=== PATIENT | male | born 1960 | race Caucasian/White ===

== ENCOUNTER 2018-07-24 05:34 | Day surgery (SDC) | payer OTHER ==
[2018-07-24] MEDS ORDERED: LIDOCAINE 2% MDV (20MG/ML) 20ML VIAL IV ONE (05:35)
[2018-07-24] MEDS ORDERED: MIDAZOLAM HCL 2MG/2ML VIAL IV ONE (05:35)
[2018-07-24] MEDS ORDERED: ACETAMINOPHEN W/ CODEINE 300MG/30MG TABLET PO ONE (05:35)
[2018-07-24] MEDS ORDERED: ONDANSETRON HCL IV 4 MG/2 ML VIAL IVP ONE (05:35)
[2018-07-24] MEDS ORDERED: PROPOFOL 10 MG/ML VIAL IV ONE (05:35)
[2018-07-24] MEDS ORDERED: DEXAMETHASONE 4 MG/ML 1ML VIAL IVP ONE (05:35)
[2018-07-24] MEDS ORDERED: FENTANYL PF 100MCG/2ML VIAL IV ONE (05:35)
[2018-07-24] MEDS ORDERED: SEVOFLURANE 250 ML INH ONE (05:35)
[2018-07-24] MEDS ORDERED: SCOPOLAMINE 1 PATCH TDSY TD ONE (06:00)
[2018-07-24] MEDS ORDERED: METOCLOPRAMIDE 10 MG TABLET PO ONE (06:00)
[2018-07-24] MEDS ORDERED: ACETAMINOPHEN 1,000 MG/100 ML BTL IV ONE (06:00)
[2018-07-24] MEDS ORDERED: FAMOTIDINE 20MG TABLET PO ONE (06:00)
--- NOTE | 2018-07-25 10:30 | Operative Note ---
DATE OF SURGERY: 07/24/2018 Surgeon: Jos Peacock DO PREOPERATIVE DIAGNOSIS: Ganglion first dorsal compartment of the right wrist. POSTOPERATIVE DIAGNOSIS: Soft tissue mass first dorsal compartment of right wrist (1 cm). OPERATION: Excision of soft tissue mass first dorsal compartment of right wrist using 3.5 loop magnification. DESCRIPTION OF PROCEDURE: This 58-year-old male was taken to the operating room and placed in the supine position on the operating room table. General anesthetic was administered. The right upper extremity was elevated and prepped with Hibiclens and draped in the usual sterile fashion. After exsanguination, an incision was made transversely 1 cm proximal to the tip of the radial styloid. Dissection was carried down through the skin and subcutaneous tissue. Superficial branches of the radial nerve were identified and protected. The first dorsal compartment was easily identified and what appeared to be a mass at the distal margin of the first dorsal compartment was identified. An incision was made longitudinally in line with the extensor tendons and the mass was identified. I did not see any evidence of a ganglion. There was no fluid. This appeared to be a solid type mass red in color and it was excised in an elliptical type fashion protecting the extensor tendons to the thumb. This was excised and sent to the laboratory for analysis. We did incise the remainder of the first dorsal compartment to evaluate all of the extensor tendons and they all appeared to be normal. The wound was irrigated with lactated Ringer's solution. Hemostasis obtained with the electrocautery and the wound was closed with 4-0 Vicryl suture and the skin with 4-0 nylon interlocking suture. Sterile dressings applied and the patient taken to the recovery room in satisfactory condition. GROSS PATHOLOGY: This patient demonstrated what appeared to be a soft tissue mass at the distal margin of the first dorsal compartment. It was red and cellular. I did not see any evidence of a ganglion cyst. The mass was roughly 1 cm in greatest dimension. CC: Carli COLEMAN
== END 2018-07-24 08:35 | disposition home or self-care (01) ==
LOC: SUR 05:34
PROVIDERS: ATTEND Orthopaedic Surgery
DX: M67.441 Ganglion, right hand (principal); K21.9 Gastro-esophageal reflux disease without esophagitis
CPT/HCPCS: 25111; 01810; J2405; J3010

== ENCOUNTER 2019-04-24 06:29 | Day surgery (SDC) | payer OTHER ==
[2019-04-24] MEDS ORDERED: LIDOCAINE 2% MDV (20MG/ML) 20ML VIAL IV ONE (06:30)
[2019-04-24] MEDS ORDERED: ONDANSETRON HCL IV 4 MG/2 ML VIAL IVP ONE (06:30)
[2019-04-24] MEDS ORDERED: MIDAZOLAM HCL 2MG/2ML VIAL IV ONE (06:30)
[2019-04-24] MEDS ORDERED: PROPOFOL 10 MG/ML VIAL IV ONE (06:30)
--- NOTE | 2019-04-27 07:30 | Operative Note ---
SURGEON: Garrett Li MD OPERATION: COLONOSCOPY. INDICATIONS: This is a 59-year-old male with history of colon polyps who presented for surveillance colonoscopy. Last colonoscopy was about 5 years ago. POSTOPERATIVE DIAGNOSES: 1. Left-sided colonic diverticulosis. 2. A 3 mm sessile polyp in the ascending colon that was removed by cold biopsy forceps. 3. Otherwise normal colon. ANESTHESIA: Sedation is per Anesthesia. Pulse oximetry was monitored throughout the procedure to maintain O2 saturation of 90% or greater. Supplemental oxygen was administered via nasal cannula. Cardiac and vital signs were monitored throughout the duration of the procedure, and they were stable. The procedure of colonoscopy and risks and alternatives of the procedure, including the risk of bleeding and perforation, among others, were explained to the patient who voiced understanding and agreed to have the procedure done. Physical examination was performed, and the patient was found stable for sedation. PROCEDURE: The patient was placed in the left lateral position. Sedation was initiated. A digital rectal exam was performed and showed some mild external hemorrhoids with no palpable rectal masses. The prostate was of normal size. An Olympus PCF-180AL colonoscope was then inserted into the rectum under direct visualization. It was advanced to the cecum without difficulty. The ileocecal valve and appendiceal orifice were identified and photographed. The colonic mucosa was carefully examined upon introduction of the colonoscope. There were scattered diverticula noted in the sigmoid and descending colon. In the ascending colon was a 3 mm sessile polyp that was noted and was removed by cold biopsy forceps. The colonoscope was then withdrawn while carefully examining the colonic mucosal surfaces. No other lesions were noted. In the rectum, retroflexion was performed and grade 1 internal hemorrhoids were noted. The colonoscope was then withdrawn and the procedure was terminated. The patient tolerated the procedure well without any immediate complications. The patient remained with stable vital signs and was transferred to the recovery room. RECOMMENDATIONS: 1. The patient should be on a high-fiber diet. 2. The patient is to have a repeat colonoscopy for surveillance in 5 years. Thank you for allowing me to participate in the care of your patient. JESSICA
== END 2019-04-24 08:22 | disposition home or self-care (01) ==
LOC: HOP 06:29
PROVIDERS: ATTEND Internal Medicine Gastroenterology
DX: Z12.11 Encounter for screening for malignant neoplasm of colon (principal); Z86.010 Personal history of colon polyps; D12.2 Benign neoplasm of ascending colon; K57.30 Diverticulosis of large intestine without perforation or abscess without bleeding
CPT/HCPCS: 45380; 00811; J2405